=== PATIENT | female | born 1995 | race American Indian/Alaskan Native ===

== ENCOUNTER 2018-07-07 21:36 | Emergency (ER) | payer BC ==
[2018-07-07 23:26] LABS: Amorphous Crystals,Urine 1+; Bilirubin,Urine NEG (Negative); Blood,Urine NEG (Negative); Color,Urine Yellow (Yellow); Mucus,Urine FEW /HPF; Protein,Urine <15 mg/dL mg/dL (Negative); WBC,Urine < 1.0 /HPF (0.0-6.0)
[2018-07-07 23:29] LABS: HCG Qualitative,Urine Negative (Negative)
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
[2018-07-08 01:37] VITALS: BP 123/83
[2018-07-08] MEDS ORDERED: TRIPLE ANTIBIOTIC TP ONE (04:39)
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
== END 2018-07-08 05:11 | disposition home or self-care (01) ==
LOC: ED 21:36
DX: S60.512A Abrasion of left hand, initial encounter (principal); M54.5 Low back pain; M25.561 Pain in right knee; V89.2XXA Person injured in unspecified motor-vehicle accident, traffic, initial encounter; W22.10XA Striking against or struck by unspecified automobile airbag, initial encounter; Y93.89 Activity, other specified; Y92.89 Other specified places as the place of occurrence of the external cause; Y99.8 Other external cause status
CPT/HCPCS: 72100; 81001; 81025; 99283; A6250

== ENCOUNTER 2020-04-06 12:42 | Inpatient (IN) | payer BC, MEDICAID ==
--- NOTE | 2020-04-06 13:21 | History and Physical Report ---
History of Present Illness Date of examination: 04/06/20 Date of admission: 04/06/20 12:42 Chief complaint: "My water broke" History of present illness: Pt is a 24 yo at 39w4d EGA who presents reporting leakage of fluid since 1200 today. She reports positive movement and mild contractions, denies vaginal bleeding. She has received care with [facility] learn to swim instructor, with transfer into care with [facility]'s learn to swim instructor at 25 weeks EGA. Her has been complicated by bilateral uncomplicated ovarian cysts and heart murmur with normal cardiology f/u per patient. She is GBS negative. Past History Past Medical History: other (heart murmur) Past Surgical History: no surgical history BRAND COORDINATOR History: chlamydia (remote from ), other (bilateral ovarian cysts) Family/Genetic History: diabetes Social history: no significant social history - Obstetrical History Expected Date of Delivery: 04/09/20 Actual Gestation: 39 Week(s) 4 Day(s) : 1 Para: 0 Medications and Allergies Allergies Allergy/AdvReac Type Severity Reaction Status Date / Time No Known Allergies Allergy Unverified 09/03/15 20:56 Home Medications Medication Instructions Recorded Confirmed Last Taken Type Acetaminophen/Codeine [Tylenol #3] 1 tab PO Q6H PRN #15 tab 09/04/15 Unknown Rx cephALEXin [Keflex] 500 mg PO Q12HR #14 cap 09/04/15 Unknown Rx Ibuprofen [Motrin 600 MG tab] 600 mg PO Q8H PRN #30 tablet 07/08/18 Unknown Rx Neomy/Baci/Polymyx B Opth Oint 3.5 gm OP BID #1 tub 07/08/18 Unknown Rx [Neosporin] Review of Systems All systems: negative Genitourinary: leakage of fluid, contractions, no vaginal bleeding - Physical Exam Lungs: Positive: Normal air movement Abdomen: Positive: soft Genitourinary (Female): Positive: normal external genitalia Uterus: Positive: enlarged (gravid) - Obstetrical FHR: category 1 Uterine Contraction Monitor Mode: External Cervical Dilatation: 1.5 Cervical Effacement Percentage: 50 station: -4 Uterine Tone Measurement Phase: Resting Uterine Contraction Intensity: Mild Results All other labs normal. Assessment and Plan A: 24 yo at 39w4d EGA Premature rupture of membranes, clear GBS negative Heart murmur with normal cardiology f/u per pt Hx bilateral ovarian cysts, uncomplicated P: Admit to L&D Cytotec for induction of labor Closely monitor clinical status Anticipate
[2020-04-06] MEDS ORDERED: fentaNYL 100 MCG/2 ML INJ IV PRN (14:10)
[2020-04-06] MEDS ORDERED: ePHEDrine SULFATE 50 MG/1 ML INJ IV PRN (14:10)
[2020-04-06] MEDS ORDERED: MINERAL OIL 30 ML ORAL LIQD PO PRN (14:10)
[2020-04-06] MEDS ORDERED: TERBUTALINE 1 MG/1 ML INJ SUB-Q PRN (14:10)
[2020-04-06] MEDS ORDERED: NALOXONE 0.4 MG/1 ML INJ IV PRN (14:10)
[2020-04-06] MEDS ORDERED: BUTORPHANOL 2 MG/1 ML INJ IV PRN ×2 (14:10)
[2020-04-06] MEDS ORDERED: ONDANSETRON 4 MG/2 ML INJ IV PRN ×2 (14:10→22:44)
[2020-04-06] MEDS ORDERED: TERBUTALINE 1 MG/1 ML INJ IVP PRN (14:10)
[2020-04-06] MEDS ORDERED: LIDOCAINE (2%) 20 MG/1 ML VIAL 20 ML MDV INFILTRATI ONE ×2 (14:10→22:16)
[2020-04-06] MEDS ORDERED: PROMETHAZINE 25 MG TAB PO PRN ×2 (14:10→22:44)
[2020-04-06] MEDS ORDERED: OXYTOCIN 20 UNIT/1000ML DRIP 20 UNITS/1,000 ML BAG IV SCH (15:00)
[2020-04-06] MEDS ORDERED: OXYTOCIN DRIP 30 UNITS/500 ML BAG IV SCH (15:00)
[2020-04-06] MEDS ORDERED: miSOPROStol 25 MCG TAB PO SCH (15:00)
[2020-04-06] MEDS: LACTATED RINGERS 1,000 ML IV SCH ×2 (16:20→20:21)
[2020-04-06 19:14] LABS: Hematocrit 36.7 % (30.3-42.9); Hemoglobin 12.6 gm/dl (10.1-14.3); Mean Corpuscular HGB Conc 34 % (30-34); Mean Corpuscular Volume 88 fl (79-97); Platelet Count 169 K/mm3 (140-440); Red Blood Count 4.17 M/mm3 (3.65-5.03); Red Cell Distribution Width 12.9 % (13.2-15.2)
[2020-04-06] MEDS ORDERED: fentaNYL-BUPIV 2 MCG/ML-0.125% 0 MCG/0 ML BAG EPIDURAL ONE (20:59)
[2020-04-06] MEDS ORDERED: DEXMEDETOMIDINE 200 MCG/2 ML VIAL IV ONE (20:59)
[2020-04-06] MEDS ORDERED: MAGNESIUM HYDROXIDE (MOM) ORAL LIQD UDC PO PRN (22:44)
[2020-04-06] MEDS ORDERED: WITCH HAZEL/ GLYCERIN PAD TP PRN (22:44)
[2020-04-06] MEDS ORDERED: diphenhydrAMINE 25 MG CAP PO PRN (22:44)
[2020-04-06] MEDS ORDERED: LANOLIN/ZINC/DIMETHICONE (LANSINOH) 7 GM TP PRN (22:44)
[2020-04-06] MEDS ORDERED: ACETAMINOPHEN 325 MG TAB PO PRN (22:44)
[2020-04-06] MEDS ORDERED: PROMETHAZINE 25 MG RECT SUPP PR PRN (22:44)
--- NOTE | 2020-04-06 22:44 | Procedure Note ---
OB Delivery Note - Delivery Date of Delivery: 04/06/20 Surgeon: OG LIRA ([facility]) Estimated blood loss: 200cc - Vaginal Delivery presentation: vertex Delivery position: OA Intrapartum events: PROM->1hr before delivery Delivery induction: misoprostol Delivery augmentation: pitocin Delivery monitor: external FHT, external uterine Route of delivery: Indicators for instrumentation: nonreassuring FHR tracing Delivery placenta: spontaneous Delivery cord: 3 umbilical vessels Episiotomy: none Delivery laceration: other (left labial abrasion) Anesthesia: none Delivery comments: Excellent maternal effort progressed to of vigorous female at 2225. Head delivered OA, restituted LOT, shoulders followed with gentle traction. Infant to maternal abdomen. Bulb suction by peds team. Apgars 8/9 weight 7lb 3oz. Cord clamped at cut at 2229 and placenta delivered spontaneously and intact at 2230, 3VC. Fundus firm to massage, Pitocin infusing, straight cath inserted into bladder sterile fashion to facilitate with uterine tone. Left labial abrasion noted, not repaired. Counts correct x2. Mother and infant bonding well. - Infant A at 1 minute: 8 at 5 minutes: 9 Infant Gender: Female
[2020-04-07] MEDS: IBUPROFEN 600 MG TAB PO SCH ×3 (05:55→18:10)
[2020-04-07 11:33] LABS: Hematocrit 37.4 % (30.3-42.9); Hemoglobin 12.7 gm/dl (10.1-14.3)
--- NOTE | 2020-04-07 12:36 | Progress Note ---
Assessment and Plan A/P PPD routine PP care d/c home tomorrow Subjective - Subjective Date of service: 04/07/20 Principal diagnosis: Patient reports: appetite normal, voiding normally, pain well controlled, flatus, ambulating normally [place]: doing well Objective - Vital Signs Latest vital signs: Vital Signs Temp Pulse Resp BP BP Pulse Ox 04/07/20 08:05 98.6 F 100 H 20 109/62 04/07/20 04:41 100.0 F H 113 H 20 122/74 97 04/07/20 01:35 99.8 F H 96 H 20 127/71 100 04/07/20 00:40 88 128/75 04/07/20 00:22 95 H 122/60 04/07/20 00:07 96 H 119/69 04/06/20 23:52 93 H 130/74 04/06/20 23:37 92 H 128/74 04/06/20 23:23 94 H 125/70 04/06/20 23:08 102 H 151/89 04/06/20 22:53 109 H 136/81 04/06/20 22:38 110 H 142/82 04/06/20 21:33 118 H 126/69 04/06/20 21:18 128 H 98 04/06/20 21:13 98 H 98 04/06/20 21:08 102 H 100 04/06/20 21:03 111 H 99 04/06/20 21:02 85 140/87 04/06/20 20:58 103 H 100 04/06/20 20:53 100 H 100 04/06/20 20:48 104 H 99 04/06/20 20:43 90 99 04/06/20 20:38 94 H 100 04/06/20 20:33 96 H 99 04/06/20 20:32 93 H 149/96 04/06/20 20:28 99 H 99 04/06/20 20:23 110 H 96 04/06/20 20:18 94 H 99 04/06/20 20:13 96 H 100 04/06/20 20:08 95 H 100 04/06/20 20:03 111 H 98 04/06/20 20:02 96 H 133/88 04/06/20 19:58 96 H 98 04/06/20 19:53 93 H 99 04/06/20 19:48 112 H 99 04/06/20 19:43 104 H 98 04/06/20 19:30 97.7 F 20 04/06/20 19:25 95 H 97 04/06/20 19:20 103 H 96 04/06/20 19:15 89 98 04/06/20 19:10 94 H 117/74 97 04/06/20 19:05 87 96 04/06/20 19:02 86 119/75 04/06/20 19:00 88 97 04/06/20 18:55 90 97 04/06/20 18:53 88 123/79 04/06/20 18:52 94 H 94 04/06/20 18:50 89 100 04/06/20 18:48 18 04/06/20 18:45 91 H 99 04/06/20 18:40 98 H 100 04/06/20 18:35 113 H 100 04/06/20 18:30 109 H 99 04/06/20 18:25 110 H 99 04/06/20 18:20 98 H 100 04/06/20 18:15 112 H 98 04/06/20 18:10 99 H 98 04/06/20 18:05 93 H 97 04/06/20 18:00 103 H 95 04/06/20 17:55 92 H 97 04/06/20 17:50 96 H 99 04/06/20 17:35 87 99 04/06/20 17:32 87 127/77 04/06/20 17:30 84 98 04/06/20 17:25 84 98 04/06/20 17:20 97 H 97 04/06/20 17:15 85 96 04/06/20 17:10 86 96 04/06/20 17:08 98.0 F 04/06/20 17:05 89 97 04/06/20 17:02 88 122/76 04/06/20 17:00 96 H 98 04/06/20 16:55 95 H 97 04/06/20 16:50 93 H 96 04/06/20 16:45 83 96 04/06/20 16:40 89 96 04/06/20 16:35 89 96 04/06/20 16:32 20 04/06/20 16:30 89 99 04/06/20 16:25 95 H 98 05/31/20 16:20 105 H 98 04/06/20 16:15 96 H 97 04/06/20 16:10 90 97 04/06/20 16:05 96 H 97 04/06/20 16:00 95 H 98 04/06/20 15:55 96 H 97 04/06/20 15:50 96 H 97 04/06/20 15:45 92 H 97 04/06/20 15:40 103 H 97 04/06/20 15:35 108 H 99 04/06/20 15:25 91 H 97 04/06/20 15:20 93 H 97 04/06/20 15:15 88 97 04/06/20 15:10 85 97 04/06/20 15:05 88 97 04/06/20 15:00 88 97 04/06/20 14:55 86 97 04/06/20 14:50 85 97 04/06/20 14:46 85 121/82 04/06/20 14:45 88 98 04/06/20 13:00 98.1 F Intake and Output 04/06/20 04/07/20 04/07/20 23:59 07:59 15:59 Intake Total 779.15 240 Output Total 2150 Balance 779.15 -2150 240 Intake: IV 779.15 Lactated Ringers 1,000 ml 768.75 @ 125 mls/hr IV DIRECT ALLYN Rx#:[id number] PITOCin/NS 30 UNIT/500ML 10.4 30 units In 500 ml @ 1 MILLIUNITS/MIN 1 mls/hr IV TITR ALLYN Rx#:[id number] Oral 240 Output: Urine 2150 Void 2150 Other: Total, Intake Amount 240 Total, Output Amount 550 # Voids Void 1 1 1 Estimated Blood Loss 250 - Exam Breasts: Present: normal Cardiovascular: Present: Regular rate, Normal S1 Lungs: Present: Clear to auscultation, Normal air movement Abdomen: Present: normal appearance, soft, normal bowel sounds. Absent: distention, tenderness, guarding Uterus: Present: normal, firm, fundal height below umbilicus. Absent: bogginess, tenderness Extremities: Present: normal Deep Tendon Reflex Grade: Normal +2 Incision: Present: normal, dry, intact - Labs Labs: Abnormal lab results 04/06/20 Range/Units 18:51 RDW 12.9 L (13.2-15.2) %
--- NOTE | 2020-04-07 12:37 | Discharge Summary ---
Providers - Providers Date of Admission: 04/06/20 12:42 Date of discharge: 04/08/20 Attending physician: JAS GALAVIZ 04/06/20 22:45 Consult to Vending Machine Repairer [CONS] Routine Reason For Exam: assistance with , SNS Primary care physician: JAS GALAVIZ Hospitalization Reason for admission: active labor Delivery: Episiotomy: none Laceration: none Incision: normal, dry Other procedures: none complications: none Discharge diagnosis: IUP at term delivered [place] baby: female Condition at discharge: Good Disposition: DC-01 TO HOME OR SELFCARE Plan - Discharge Medications Prescriptions: Ibuprofen [Motrin] 600 mg PO Q6H PRN #60 tablet PRN Reason: Pain - Provider Discharge Summary Activity: routine, no sex for 6 weeks, no strenuous exercise Diet: routine Instructions: routine Additional instructions: [] Smoking cessation referral if applicable(refer to patient education folder for contact #) [] Refer to [facility] Booklet Call your doctor immediately for: * Fever > 100.5 * Heavy vaginal bleeding ( >1 pad per hour) * Severe persistent headache * Shortness of breath * Reddened, hot, painful area to leg or breast * Drainage or odor from incision. * Keep incision clean and dry at all times and follow doctor's instructions regarding bathing/showering - Follow up plan Follow up: JAS GALAVIZ MD [Primary Care Provider] - 05/06/20
[2020-04-08] MEDS: IBUPROFEN 600 MG TAB PO SCH ×2 (00:29→05:27)
[2020-04-08 13:20] VITALS: BP 128/81
== END 2020-04-08 13:59 | disposition home or self-care (01) | DRG 775 ==
LOC: LD 12:42 → OB 04-07 01:09
PROVIDERS: ADMIT Obstetrics & Gynecology; ATTEND Obstetrics & Gynecology
PROC: 10E0XZZ Delivery of Products of Conception, External Approach (ICD-10-PCS; principal; 2020-04-06)
PROC: 3E033VJ Introduction of Other Hormone into Peripheral Vein, Percutaneous Approach (ICD-10-PCS; 2020-04-06)
DX: O42.02 Full-term premature rupture of membranes, onset of labor within 24 hours of rupture (principal); O76 Abnormality in fetal heart rate and rhythm complicating labor and delivery; Z3A.39 39 weeks gestation of pregnancy; Z37.0 Single live birth
CPT/HCPCS: 36415; 85014; 85018; 85027; 86592; 86850; 86900; 86901; G0378; A6250; J0595; J2590; J3010; J3490; J7120